=== PATIENT | female | born 1980 | race Caucasian/White ===

== ENCOUNTER 2018-06-06 16:00 | Emergency (ER) | payer OTHER ==
[~2018-06-06] VITALS: Ht 182.9 cm; Wt 95.3 kg
[~2018-06-06 16:00] MED LIST: AUGMENTIN 500-1 EACH PO; HYDROCODONE-AP1 EAC6 PO; IBUPROFEN 600600 M1 PO; IBUPROFEN 800800 M1 PO; IBUPROFEN 800800 MG PO; KEFLEX500 M1 PO; NORCO 5-325 TA1 EACH PO; ZOFRAN ODT4 MG PO; ZOLOFT
[2018-06-06 17:35] VITALS: BP 133/89
== END 2018-06-06 17:35 | disposition home or self-care (01) ==
LOC: M.ERS 16:00
DX: S61.213A Laceration without foreign body of left middle finger without damage to nail, initial encounter (principal); F32.9 Major depressive disorder, single episode, unspecified; F17.210 Nicotine dependence, cigarettes, uncomplicated; W26.0XXA Contact with knife, initial encounter; Y93.89 Activity, other specified; Y92.89 Other specified places as the place of occurrence of the external cause; Y99.8 Other external cause status

== ENCOUNTER 2020-07-19 16:11 | Emergency (ER) | payer OTHER ==
[~2020-07-19] VITALS: Ht 182.9 cm; Wt 95.3 kg
[2020-07-19] MEDS ORDERED: PROZAC10 M1 PO (16:35)
[2020-07-19] MEDS ORDERED: OMEPRAZOLE40 MG PO (16:35)
[2020-07-19] MEDS ORDERED: ENBRACE HR SOF1 EACH PO (16:36)
[2020-07-19 16:58] LABS: ABSOLUTE EOSINOPHILS 0.1 thou/uL (0.0-0.7); ABSOLUTE LYMPHOCYTES 1.6 thou/uL (0.8-5.3); ABSOLUTE MONOCYTES 0.7 thou/uL (0.0-1.2); ABSOLUTE NEUTROPHILS 5.3 thou/uL (1.6-8.1); BASOPHILS 0.6 %; EOSINOPHILS 1.1 %; HEMATOCRIT 34.6 % (37.0-47.0); HEMOGLOBIN 11.9 gm/dL (12.0-15.0); LYMPHOCYTES 20.3 %; MCH 31.1 pg (26.0-34.0); MCHC 34.5 g/dL (28.0-37.0); MCV 90.3 fL (80.0-100.0); MONOCYTES 9.6 %; MPV 8.4 fl. (7.2-11.1); NUCLEATED RBCS 0 /100WBC; PLATELET COUNT* 193 thou/uL (150-400); POLYS 68.4 %; RBC 3.83 mil/uL (4.20-5.00); RDW-CV 12.5 % (10.5-14.5); WBC 7.8 thou/uL (4.0-11.0)
[2020-07-19 17:07] LABS: CALCIUM 8.7 mg/dL (8.5-10.1); CREATININE 0.7 mg/dL (0.6-1.3); POTASSIUM 3.1 mmol/L (3.5-5.1)
[2020-07-19 17:11] LABS: ALBUMIN 2.6 g/dL (3.4-5.0); APTT 25.4 Seconds (25.0-31.3); PROTIME 9.8 Seconds (9.20-11.50); TOTAL BILIRUBIN 0.3 mg/dL (<0.1-1.0); TOTAL PROTEIN 7.1 g/dL (6.4-8.2); URIC ACID* 3.7 mg/dL (2.6-7.2)
[2020-07-19 17:12] LABS: INR < 0.9
[2020-07-19] MEDS ORDERED: AUGMENTIN 875-1 EACH PO (18:12)
[2020-07-19 18:24] VITALS: BP 140/81
== END 2020-07-19 18:25 | disposition home or self-care (01) ==
LOC: M.ERS 16:11
PROVIDERS: Nurse Practitioner Family
DX: O26.893 Other specified pregnancy related conditions, third trimester (principal); L03.116 Cellulitis of left lower limb; O99.333 Smoking (tobacco) complicating pregnancy, third trimester; Z3A.38 38 weeks gestation of pregnancy

== ENCOUNTER → 2020-09-15 | Outpatient (CLI) | payer OTHER ==
[~2020-09-15] MED LIST changes: +AUGMENTIN 875-1 EACH PO; +ENBRACE HR SOF1 EACH PO; +OMEPRAZOLE40 MG PO; +PROZAC10 M1 PO
== END ==
LOC: M.MRI 09-14 07:30
PROVIDERS: ATTEND Specialist
DX: M84.375A Stress fracture, left foot, initial encounter for fracture (principal); R60.0 Localized edema

== ENCOUNTER 2021-02-17 17:41 | Emergency (ER) | payer OTHER ==
[~2021-02-17] VITALS: Ht 182.9 cm; Wt 90.7 kg
[2021-02-17 17:57] VITALS: BP 131/78
== END 2021-02-17 17:58 | disposition left against medical advice (07) ==
LOC: M.ERS 17:41
DX: Z53.21 Procedure and treatment not carried out due to patient leaving prior to being seen by health care provider (principal)